=== PATIENT | female | born 1985 | race Caucasian/White ===

== ENCOUNTER → 2020-07-15 | Outpatient (CLI) | payer OTHER ==
[~2020-07-15] MED LIST: CORTIZONE-1057 GM TP
== END ==
LOC: NM 14:00
DX: R10.11 Right upper quadrant pain (principal); R11.0 Nausea
CPT/HCPCS: 78227; A9537; J2805

== ENCOUNTER → 2021-04-04 | Outpatient (CLI) | payer OTHER ==
[2021-04-04 19:19] LABS: HEMOGLOBIN 11.8 gm/dl (12.3-15.3); RED BLOOD COUNT 4.25 M/UL (4.00-5.10); WHITE BLOOD COUNT 10.6 K/UL (4.5-11.0)
[2021-04-04 19:39] LABS: BUN/CREATININE RATIO 14 (0-10)
== END ==
LOC: LAB 18:25
PROVIDERS: Nurse Practitioner
DX: L02.214 Cutaneous abscess of groin (principal)
CPT/HCPCS: 80053; 85025

== ENCOUNTER → 2021-05-17 | Outpatient (CLI) | payer OTHER | LOC: MAMO 03-09 14:30 → US 04-12 14:30 → MAMO 13:23 → US 14:00 | DX: N63.22 Unspecified lump in the left breast, upper inner quadrant (principal) | CPT/HCPCS: 76641; 77066; G0279 ==